=== PATIENT | male | born 1955 | race African-American/Black ===

== ENCOUNTER 2024-05-09 16:32 | Emergency (ER) | payer MEDICARE ==
[~2024-05-09] VITALS: Ht 172.7 cm; Wt 84.0 kg
[2024-05-09 16:50] VITALS: O2SAT 99
[2024-05-09 17:00] LABS: BASOPHILS % 1.1 % (0.0-2.0); EOSINOPHILS % 0.4 % (0.0-5.0); HEMATOCRIT. 33.5 % (42.0-52.0); HEMOGLOBIN. 11.1 g/dL (14.0-18.0); LYMPHOCYTES % 27.1 % (20.0-50.0); MEAN CORPUSCULAR HEMOGLOBIN 32.5 pg (28.0-32.0); MEAN CORPUSCULAR HGB CONC 33.3 g/dL (31.0-37.0); MEAN CORPUSCULAR VOLUME 97.5 fL (80.0-94.0); MEAN PLATELET VOLUME 8.2 fl (7.4-10.4); MONOCYTES % 7.1 % (2.0-8.0); NEUTROPHILS % 64.3 % (40.0-76.0); PLATELET 311 x1000/uL (130-400); RED BLOOD CELL COUNT 3.43 mill/uL (4.7-6.1); RED CELL DISTRIBUTION WIDTH 13.8 % (11.6-14.6); WHITE BLOOD COUNT 5.1 x1000/uL (4.5-11.0)
[2024-05-09 17:09] LABS: CHLORIDE 105 mEq/L (98-107); POTASSIUM 3.5 mEq/L (3.5-5.1)
[2024-05-09 17:10] LABS: SODIUM 139 mEq/L (136-145)
[2024-05-09 17:11] LABS: CALCIUM 9.2 mg/dL (8.7-10.4); CARBON DIOXIDE 26 mEq/L (21-32)
[2024-05-09 17:16] LABS: CREATININE 0.7 mg/dL (0.6-1.3); GLUCOSE 96 mg/dL (70-105); UREA NITROGEN BLOOD 9 mg/dL (9-23)
[2024-05-09] MEDS: AMLODIPINE 5MG TABLET PO NR (22:15)
[2024-05-09] MEDS: CLONIDINE 0.1MG TABLET PO ONE (22:25)
[2024-05-09 23:12] VITALS: BP 125/80; PULSE 84; RESP 18; TEMP 36.66960; O2SAT 99
[2024-05-09] MEDS ORDERED: AMLO5TAB88 MT (23:14)
[2024-05-09] MEDS ORDERED: CLON0.1T MT (23:14)
== END 2024-05-09 23:25 | disposition home or self-care (01) ==
LOC: ER 16:32
DX: I11.0 Hypertensive heart disease with heart failure (principal); I50.9 Heart failure, unspecified
CPT/HCPCS: 36415; 71045; 80048; 85025; 93005; 99285